=== PATIENT | male | born 1950 | race Caucasian/White ===

== ENCOUNTER → 2021-08-09 | Day surgery (SDC) | payer MEDICARE, OTHER ==
[~2021-08-09] MED LIST: ASPIRIN81 MG PO; LISINOPRIL-HCT1 EAC1 PO
== END | disposition home or self-care (01) ==
LOC: OR 06:21
DX: D12.2 Benign neoplasm of ascending colon (principal); D12.5 Benign neoplasm of sigmoid colon; D12.3 Benign neoplasm of transverse colon; K64.1 Second degree hemorrhoids; I10 Essential (primary) hypertension; Z87.891 Personal history of nicotine dependence; Z79.82 Long term (current) use of aspirin; Z79.899 Other long term (current) drug therapy
CPT/HCPCS: J2704; J7040

== ENCOUNTER 2021-09-22 13:18 | Emergency (ER) | payer MEDICARE, OTHER ==
[2021-09-22 14:14] LABS: HEMOGLOBIN 14.7 gm/dl (14.0-17.5); RED BLOOD COUNT 5.01 M/UL (4.20-5.50); WHITE BLOOD COUNT 5.6 K/UL (4.5-11.0)
[2021-09-22 14:37] LABS: BUN/CREATININE RATIO 20 (0-10)
[2021-09-22] MEDS ORDERED: HYDROCODON-ACE1 EAC4 PO (20:34)
[2021-09-22] MEDS ORDERED: AUGMENTIN 875-1 EACH PO (20:34)
[2021-09-22] MEDS ORDERED: ZOFRAN ODT 4 MG4 MG SL (20:34)
== END 2021-09-22 21:10 | disposition home or self-care (01) ==
LOC: ER1 13:18
PROVIDERS: Emergency Medicine
DX: K80.00 Calculus of gallbladder with acute cholecystitis without obstruction (principal); E78.5 Hyperlipidemia, unspecified
CPT/HCPCS: 76705; 80053; 81001; 83690; 85025; 96374; 96375; 96376; 99284; C9113; J2270; J2543; Q9967